=== PATIENT | male | born 1970 | race Caucasian/White ===

== ENCOUNTER 2022-05-15 05:58 | Outpatient (REF) | payer OTHER, SELFPAY ==
[2022-05-15 06:07] LABS: MANUAL DIFF FLAG NO
[2022-05-15 07:43] LABS: Basophils Percent Auto 0.4 % (0-2); Eosinophils Absolute Auto 0.3 X10*3/uL (0.0-0.4); Eosinophils Percent Auto 4.4 % (0-4); Hemoglobin 14.8 g/dl (14.0-18.0); Imm Gran Abs Auto 0.01 X10*3/uL (0.00-0.03); Imm Gran Pct Auto 0.1 % (0.0-0.4); Lymphocytes Absolute Auto 1.2 X10*3/uL (1.2-4.9); Mean Corpuscular HGB Conc 34.4 g/dl (31.0-36.0); Mean Corpuscular Hemoglobin 30.2 pg (27.0-33.0); Mean Corpuscular Volume 87.8 fL (80.0-98.0); Mean Platelet Volume 12.1 fL (9.4-12.4); Monocytes Absolute Auto 0.6 X10*3/uL (0.1-1.2); Monocytes Percent Auto 7.7 % (2-11); Neutrophils Absolute Auto 5.2 x10*3/uL (2.0-8.3); Neutrophils Percent Auto 71.4 % (45-73); Platelet Count 167 X10*3/uL (160-400); Red Cell Distribution Width 13.2 % (11.0-16.0); White Blood Count 7.2 X10*3/uL (4.8-10.8)
[2022-05-15 08:23] LABS: Alanine Aminotransferase 32 U/L (0-40); Albumin Level 4.4 g/dL (3.5-5.0); Alkaline Phosphatase 66 U/L (39-117); Anion Gap 13 (12-20); Aspartate Amino Transferase 28 U/L (5-37); Bilirubin Total 0.9 mg/dL (0.0-1.0); Blood Urea Nitrogen 24 mg/dL (9-16); Calcium 9.2 mg/dL (8.4-10.2); Carbon Dioxide 27 mmol/L (22-29); Chloride 106 mmol/L (96-108); Cholesterol 170 mg/dL; Estimated Glomerular Filt Rate > 60; Glucose Fasting 91 mg/dL (60-99); HDL Cholesterol 44 mg/dL; LDL Cholesterol Calculated 110 mg/dl; Potassium 4.3 mmol/L (3.3-5.1); Sodium 142 mmol/L (135-145); Triglycerides 80 mg/dL
[2022-05-15 08:48] LABS: Prostate Specific Antigen 0.56 ng/mL (<0.05-4.0)
[2022-05-17 15:22] LABS: Venous Lead 2.3 mcg/dL (<3.5)
== END 2022-05-15 05:59 | disposition home or self-care (01) ==
LOC: HO.LAB 05:58
PROVIDERS: PCP Internal Medicine; Visit Provider Internal Medicine
DX: Z00.00 Encounter for general adult medical examination without abnormal findings (principal); Z12.5 Encounter for screening for malignant neoplasm of prostate
CPT/HCPCS: 36415; 80053; 80061; 83655; 84153; 85025

== ENCOUNTER 2022-09-26 11:44 | Day surgery (SDC) | payer OTHER, SELFPAY ==
[2022-09-25 09:47] VITALS: BMI 27.4
--- NOTE | 2022-09-25 12:45 | HO.ANESPROP2 ---
Documented by User: Susana Oneal NP 09/25/22 12:45 HPI - Anesthesia Eval Consult details Narrative: 51yo M for Colonoscopy [facility] Past Medical History Medical History No pertinent past medical history Surgical History Surgical History (Updated 09/25/22 @ 09:43 by Erna Holley, RN) History of appendectomy History of hand surgery Social History Social History Patient Tobacco Use Status: Never used Tobacco Second Hand Smoke Exposure: No Use of substances other than those prescribed or required for medical reasons: No Are you DNR?: No Advance Directives: No Advance Directives Information Provided: Yes Advance Directives on File: No Meds Allergies Allergy/AdvReac Type Severity Reaction Status Date / Time No Known Allergies Allergy Verified 09/26/22 12:22 Home Medications Medication Instructions Recorded Confirmed Last Taken Type ibuprofen 100 mg tablet 400 mg PO DAILY PRN Pain 09/25/22 09/26/22 09/19/22 History multivitamin 1 tab PO DAILY 09/25/22 09/25/22 Unknown History Exam Exam Date and Time: September 25, 2022 1245 Height,Weight and Vital Signs: Height 5 ft 6 in Weight 77.111 kg Assessment and Plan Assessment Anesthesia Assessment: Chart Reviewed Documented by User: Boris Murillo MD 09/26/22 13:15 [facility] Past Medical History Medical History No pertinent past medical history Family History Family history of problems with anesthesia: No Surgical History Surgical History (Updated 09/25/22 @ 09:43 by Erna Holley RN) History of appendectomy History of hand surgery History of Problems with Anesthesia: No Social History Social History Patient Tobacco Use Status: Never used Tobacco Second Hand Smoke Exposure: No Use of substances other than those prescribed or required for medical reasons: No Are you DNR?: No Advance Directives: No Advance Directives Information Provided: Yes Advance Directives on File: No Meds Allergies Allergy/AdvReac Type Severity Reaction Status Date / Time No Known Allergies Allergy Verified 09/26/22 12:22 Home Medications Medication Instructions Recorded Confirmed Last Taken Type ibuprofen 100 mg tablet 400 mg PO DAILY PRN Pain 09/25/22 09/26/22 09/19/22 History multivitamin 1 tab PO DAILY 09/25/22 09/25/22 Unknown History Exam Airway Mallampati Class: II TM Dist: >3cm Neck ROM: Full Loose/Missing/Broken Teeth: No Heart: rrr Lungs: clear Assessment and Plan Final Anesthetic Review Family History of Problems with Anesthesia: No History of Problems with Anesthesia: No NPO: Yes ASA Class: I Final Preanesthetic Review: No Changes in Pt Med Stat, Meds/Allgs Chart Reviewed, Consent Obtained/Reviewed and Anes Risks/Benef Reviewed Patient Risk: Low Anesthetic Plan Anesthetic Plan: MAC: Disposition: Standard PACU
[2022-09-26 12:18] VITALS: BP 115/79; PULSE 78; RESP 16; TEMP 36.3; O2SAT 97
[2022-09-26] MEDS: Lactated Ringers 1,000 ML 100 ML IVCONT (12:29)
--- NOTE | 2022-09-26 13:32 | P.BOP_ITS ---
Brief Operative Note Date of Service: 09/26/22 Pre-op diagnosis: screening Post-op diagnosis: same Procedure: colonoscopy Surgeon: Rufino Szymanski Anesthesia: MAC Was an Auto Damage Estimator used for this Procedure?: No Estimated blood loss (mL): 0 Pathology: none sent Condition: stable Disposition: PACU
[2022-09-26 13:40] VITALS: BP 93/58; PULSE 71; RESP 18; TEMP 36.1; O2SAT 98
[2022-09-26 13:54] VITALS: BP 100/68; PULSE 65; RESP 16; TEMP 36.2; O2SAT 99
--- NOTE | 2022-09-27 05:10 | OP_ITS ---
SURGEON: Rufino Szymanski MD INDICATIONS: Colon cancer screening and family history of colon cancer. PREOPERATIVE DIAGNOSIS: POSTOPERATIVE DIAGNOSIS: PROCEDURE PERFORMED: Colonoscopy to the terminal ileum. ESTIMATED BLOOD LOSS: COMPLICATIONS: ANESTHESIA: ASSISTANTS: SPECIMENS: MEDICATIONS: Monitored anesthesia care. DESCRIPTION OF PROCEDURE: Date of service is 09/26/22. History and physical performed. The risks and benefits of the procedure were explained to the patient. Informed consent was obtained. The patient was placed in the left lateral decubitus position. A digital rectal exam was performed and was found to be normal. The Olympus pediatric video colonoscope was introduced into the rectum and advanced to the cecum without difficulty. The cecum was identified by transillumination, palpation, and identification of ileocecal valve. Examination was performed. The scope was removed. He tolerated the procedure well, returned to recovery area in stable condition. FINDINGS: The terminal ileum was normal. The visualized colonic mucosa was normal. The quality of the prep was good. No polyps were identified. Retroflexed examination showed small internal hemorrhoids. IMPRESSION: Normal colonoscopy. RECOMMENDATION: 1. Follow up as needed. 2. Repeat colonoscopy is recommended in 5 years because of family history. MD DESI Novoa/KALE / [id number] MTDNupur
== END 2022-09-26 14:15 | disposition home or self-care (01) ==
PROVIDERS: PCP Internal Medicine; Visit Provider Internal Medicine Gastroenterology
PROC: 0DJD8ZZ Inspection of Lower Intestinal Tract, Via Natural or Artificial Opening Endoscopic (ICD-10-PCS; CPT 45378; principal; 2022-09-26 13:00)
DX: Z12.11 Encounter for screening for malignant neoplasm of colon (principal); Z80.0 Family history of malignant neoplasm of digestive organs; K64.8 Other hemorrhoids; Z90.49 Acquired absence of other specified parts of digestive tract; Z87.891 Personal history of nicotine dependence; Z79.1 Long term (current) use of non-steroidal anti-inflammatories (NSAID)
CPT/HCPCS: 45378

== ENCOUNTER 2024-07-11 07:03 | Outpatient (REF) | payer OTHER, SELFPAY ==
[2024-07-11 07:19] LABS: MANUAL DIFF FLAG NO
[2024-07-11 07:59] LABS: Basophils Percent Auto 0.6 % (0-2); Eosinophils Absolute Auto 0.1 X10*3/uL (0.0-0.4); Eosinophils Percent Auto 2.4 % (0-4); Hematocrit 40.4 % (42.0-52.0); Hemoglobin 14.1 g/dl (14.0-18.0); Imm Gran Abs Auto 0.01 X10*3/uL (0.00-0.03); Imm Gran Pct Auto 0.2 % (0.0-0.4); Lymphocytes Absolute Auto 1.3 X10*3/uL (1.2-4.9); Lymphocytes Percent Auto 26.4 % (20-40); Mean Corpuscular HGB Conc 34.9 g/dl (31.0-36.0); Mean Corpuscular Hemoglobin 31.3 pg (27.0-33.0); Mean Corpuscular Volume 89.6 fL (80.0-98.0); Mean Platelet Volume 11.2 fL (9.4-12.4); Monocytes Absolute Auto 0.3 X10*3/uL (0.1-1.2); Monocytes Percent Auto 5.9 % (2-11); Neutrophils Absolute Auto 3.2 x10*3/uL (2.0-8.3); Neutrophils Percent Auto 64.5 % (45-73); Platelet Count 168 X10*3/uL (160-400); Red Blood Count 4.51 X10*6/uL (4.60-5.80); Red Cell Distribution Width 13.1 % (11.0-16.0); White Blood Count 4.9 X10*3/uL (4.8-10.8)
[2024-07-11 08:23] LABS: Alanine Aminotransferase 28 U/L (0-40); Albumin Level 4.1 g/dL (3.5-5.0); Alkaline Phosphatase 63 U/L (39-117); Anion Gap 11 (12-20); Aspartate Amino Transferase 26 U/L (5-37); Bilirubin Total 0.6 mg/dL (0.0-1.0); Blood Urea Nitrogen 18 mg/dL (9-16); Calcium 9.7 mg/dL (8.4-10.2); Carbon Dioxide 28 mmol/L (22-29); Chloride 107 mmol/L (96-108); Cholesterol 145 mg/dL (<200); Estimated Glomerular Filt Rate > 60; Glucose Fasting 100 mg/dL (60-99); HDL Cholesterol 49 mg/dL (>40); LDL Cholesterol Calculated 88 mg/dL (<100); Potassium 4.9 mmol/L (3.3-5.1); Sodium 141 mmol/L (135-145); Total Protein 6.6 g/dL (6.5-8.0); Triglycerides 40 mg/dL (<150)
[2024-07-11 08:45] LABS: Prostate Specific Antigen 1.14 ng/mL (<0.05-4.0)
== END 2024-07-11 07:04 | disposition home or self-care (01) ==
LOC: HO.LAB 07:03
PROVIDERS: PCP Internal Medicine; Visit Provider Internal Medicine
DX: Z00.00 Encounter for general adult medical examination without abnormal findings (principal); M54.50 Low back pain, unspecified; E78.00 Pure hypercholesterolemia, unspecified; Z12.5 Encounter for screening for malignant neoplasm of prostate
CPT/HCPCS: 36415; 80053; 80061; 84153; 85025

== ENCOUNTER 2024-08-04 07:48 | Outpatient (REF) | payer OTHER, SELFPAY | END 2024-08-04 07:49 | disposition home or self-care (01) | LOC: HO.SH 07:48 | PROVIDERS: Visit Provider Internal Medicine | DX: Z01.118 Encounter for examination of ears and hearing with other abnormal findings (principal); H90.6 Mixed conductive and sensorineural hearing loss, bilateral | CPT/HCPCS: 92557; 92567 ==

== ENCOUNTER 2025-05-31 14:51 | Outpatient (AMB) | payer OTHER, SELFPAY ==
--- NOTE | 2025-05-31 15:17 | A.OFFPC_ITS ---
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: No Accompanied by: Self / Same As Patient Allergies No Known Allergies Allergy (Verified 05/31/25 15:18) Tobacco use date assessed: 05/31/25 Dental Screening Dental Screen Date: 05/31/25 Did you have a dental visit in the last 12 months?: Yes Did you have a dental problem in the last 6 months where you did not have access to dental care?: No [facility] Medical History No pertinent past medical history Surgical History History of colonoscopy (~09/27/22) History of hand surgery History of appendectomy Family History (Updated 05/31/25 @ 15:44 by Brea Hernandez MA) Mother No problems noted. Father No problems noted. Social History Housing: House Patient Tobacco Use Status: Former Tobacco user e-Cigarette/Vaping Use: Former Use Second Hand Smoke Exposure: No service: No Current occupational status: employed Cognitive needs: No Hearing needs: No Vision needs: Yes (reading glasses) Questionnaire PHQ-9 Over the last 2 weeks, how often have you been bothered by any of the following problems? 1. Little interest or pleasure in doing things: not at all 2. Feeling down, depressed, or hopeless: not at all 3. Trouble falling or staying asleep, or sleeping too much: not at all 4. Feeling tired or having little energy: not at all 5. Poor appetite or overeating: not at all 6. Feeling bad about yourself - or that you are a failure or have let yourself or your family down: not at all 7. Trouble concentrating on things, such as reading the newspaper or watching television: not at all 8. Moving or speaking so slowly that other people could have noticed. Or the opposite - being so fidgety or restless that you have been moving around a lot more than usual: not at all 9. Thoughts that you would be better off or of hurting yourself in some way: not at all Total score: 0 Source: Developed by Drs. Josué Pederson, Maximiliano Glover and colleagues, with an educational wesley from [employer]. Thrive Questionnaire Date Thrive assessed: 05/31/25 I am a: Patient Within the past 12 months, did the food you bought not last and you didn't have the money to get more?: Never true Within the past 12 months, did you worry whether your food would run out before you got money to buy more?: Never true Do you have trouble paying for medicines?: No Do you have trouble getting transportation to medical appointments?: No Do you have trouble paying your heating and electricity bill?: No Do you have trouble taking care of your child, family member or friend?: No Do you have trouble with day-to-day activities such as bathing, preparing meals, shopping, managing finances, etc.?: No Are you currently unemployed and looking for a job?: No Are you interested in more education?: No THRIVE Score: 0 AUDIT C Alcohol Use Questionnaire (AUDIT-C) 1. How often do you have a drink containing alcohol?: Never 3. How often do you have six or more drinks on one occasion?: Never Total Score: 0 YENNI-7 AMB Questionnaire YENNI-7 Date YENNI - 7 assessed: 05/31/25 Feeling nervous, anxious, or on edge: 1 = Several days (hard time sleeping ) Not being able to stop or control worryin = Not at all Worrying too much about different things: 0 = Not at all Trouble relaxin = Not at all Being so restless that it is hard to sit still: 0 = Not at all Becoming easily annoyed or irritable: 0 = Not at all Feeling afraid as if something awful might happen: 0 = Not at all Total YENNI-7 score (0-4 normal; 5-9 mild; 10-14 moderate; 15-21 severe): 1 Source: Developed by Drs. Josué Pederson, Karrie Tello, Maximiliano Cowan and colleagues, with an educational wesley from [employer]. Physical exam (Primary Care) Vital Signs: Last Vital Signs Temp 97.6 F 05/31/25 15:39 Pulse 58 05/31/25 15:39 BP 120/76 05/31/25 15:39 Pulse Ox 99 05/31/25 15:39 Oxygen Delivery Method Room Air 05/31/25 15:39 BMI result Body Mass Index 25.8 Tobacco/Smoking Status: Tobacco use Status Tobacco use date assessed 05/31/25 05/31/25 15:19 Patient Tobacco Use Status Former Tobacco user 05/31/25 15:45 e-Cigarette/Vaping Use Former Use 05/31/25 15:45 PHQ-9: PHQ-9 Score PHQ-9: Total score 0 05/31/25 15:45 Thrive Assessment: Date of Thrive Assessment Date Thrive assessed 05/31/25 05/31/25 15:19 Coding Level of Care Code New Pt Prev Care 40-64y(34126) Diagnoses Annual physical exam Z00.00 Assessment & Plan Assessment & Plan (1) Annual physical exam: Code(s): Z00.00 - Encounter for general adult medical examination without abnormal findings Plan: History of Present Illness - The patient is a 54-year-old male Requesting an annual physical. - Hearing loss: The patient reports hearing loss primarily in the left ear, although both ears are affected. He underwent a hearing test, which confirmed the loss. He does not use any hearing aids. - Knee pain: The patient has been experiencing knee pain for the past three years, particularly in the left knee. The pain is noticeable in the morning and after prolonged sitting. He has been going to the gym, which may be contributing to the discomfort. - Social history: The patient denies smoking, tobacco, and marijuana use. He also reports no alcohol consumption. Social History - Substance use: The patient denies smoking, tobacco, and marijuana use. He also reports no alcohol consumption. - Exercise: The patient has been going to the gym regularly. Review of Systems - Auditory: Reports hearing loss, particularly in the left ear. - Musculoskeletal: Reports knee pain, particularly in the left knee, noticeable in the morning and after prolonged sitting. - Genitourinary: Denies any urinary issues. Physical Exam General: Cooperative and healthy appearing Nutritional Appearance: Well nourished Orientation/consciousness: Patient oriented x3 Limitations: No limitations Head: Normal to inspection General: Appearance normal, both eyes and all related structures Neck: Normal visual inspection Chest: Normal palpation of entire chest wall Respiratory: Normal respiratory effort Neurology: Patient oriented x3 Results - Hearing test: Confirmed hearing loss, particularly in the left ear. Plan 1. Hearing Loss - Plan to review hearing test results and consider audiology referral if necessary. 2. Knee Pain - Plan to monitor symptoms and consider physical therapy if pain persists. Discussion Notes During the visit, we discussed the patient's hearing loss and knee pain. I recommended reviewing the hearing test results and considering an audiology referral if necessary. For the knee pain, we discussed monitoring the symptoms and considering physical therapy if the pain persists. We also talked about the importance of fasting before the upcoming blood work. Patient Instructions - Follow up with audiology if hearing issues persist. - Monitor knee pain and consider physical therapy if it continues. - Fast after midnight before the scheduled blood work. Orders: Orders Basic Metabolic Panel 05/31/25 E78.5 - Hyperlipidemia, unspecified Thyroid Stimulating Hormone 05/31/25 E78.5 - Hyperlipidemia, unspecified Complete Blood Count no Diff 05/31/25 E78.5 - Hyperlipidemia, unspecified Lipid Panel 05/31/25 E78.5 - Hyperlipidemia, unspecified Liver Panel 05/31/25 E78.5 - Hyperlipidemia, unspecified UA and rflx microscopic 05/31/25 E78.5 - Hyperlipidemia, unspecified
[2025-05-31 15:39] VITALS: BP 120/76; PULSE 58; TEMP 36.4; O2SAT 99; BMI 25.8
--- OUTSIDE RECORDS SUMMARY | 2025-05-31 16:06 | XMS_ITS | Patient Health Record ---
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 the day before the procedure for 1 day 09/06/2022 Active Multivitamin Adult A ctive Advil Active Immunizations Vaccine Route Administration Date Status Comme nts Influenza Unknown 09/06/2022 Refused Social History Tobacco Use: Social History Observation Description Date Details (start date - stop date) Former Smoker NA - NA Tobacco Use/Smoking Question Answer Notes Patient is a former smoker How long has it been since you last smoked? > 10 years Alcohol Screen Question Answer Notes Did you have a drink containing alcohol in the p ast year? No Points 0 Interpretation Negative Problems Problem Type SNOMED Code ICD Code Onset Dates Problem Status W/U Status Risk Notes Problem 115800526 Colon cancer screening (Z12.11) Active confirmed Problem History of polyp of colon (situation) (821902103) Personal history of colonic polyps (Z86.010) Active confirmed Problem [id number] FH: colon cancer (Z80.0) Active confirmed Plan Of Treatment Future Test Test Name Order Date COLONOSCOPY 09/06/2022 Insurance Providers Payer Name Payer Address Payer Phone Subscriber Number Group Number Insured Name Patient Relationship to Insured Coverage Start Date Coverage End Date [employer] [place] [address] [address] [place] [address] [id number] KIP [id number] Self - patient is the insured Medical (General) History Medical History History ICD Code Denies [place],DM,CVA,Lung disease,renal dise ase Surgical History Surgery Date(Month/Year) appendectomy Right hand surgery
== END 2025-05-31 16:16 | disposition home or self-care (01) ==
LOC: HO.HMCHD 14:52
PROVIDERS: PCP Internal Medicine; Visit Provider Internal Medicine
DX: Z00.00 Encounter for general adult medical examination without abnormal findings (principal)

== ENCOUNTER 2025-06-05 07:11 | Outpatient (REF) | payer OTHER, SELFPAY ==
[2025-06-05 08:15] LABS: Hematocrit 39.2 % (42.0-52.0); Hemoglobin 13.7 g/dl (14.0-18.0); Mean Corpuscular HGB Conc 34.9 g/dl (31.0-36.0); Mean Corpuscular Hemoglobin 31.4 pg (27.0-33.0); Mean Corpuscular Volume 89.9 fL (80.0-98.0); NRBC Abs Auto 0.000 X10*3/uL (0.0-0.012); NRBC Pct Auto 0.0 /100WBC (0.0-0.2); Platelet Count 151 X10*3/uL (160-400); Red Blood Count 4.36 X10*6/uL (4.60-5.80); White Blood Count 3.8 X10*3/uL (4.8-10.8)
[2025-06-05 08:37] LABS: Appearance Urine Clear; Glucose Urine UA Negative (Negative); PH 6.5 (5.0-9.0); Specific Gravity - Urine >= 1.030 (1.005-1.025)
[2025-06-05 09:12] LABS: Alanine Aminotransferase 38 U/L (0-40); Albumin Level 4.4 g/dL (3.5-5.0); Alkaline Phosphatase 55 U/L (39-117); Anion Gap 9 (12-20); Aspartate Amino Transferase 28 U/L (5-37); Blood Urea Nitrogen 29 mg/dL (9-16); Calcium 9.1 mg/dL (8.4-10.2); Carbon Dioxide 27 mmol/L (22-29); Chloride 109 mmol/L (96-108); Cholesterol 166 mg/dL (<200); Estimated Glomerular Filt Rate > 60; HDL Cholesterol 54 mg/dL (>40); Potassium 4.0 mmol/L (3.3-5.1); Sodium 141 mmol/L (135-145); Total Protein 6.8 g/dL (6.5-8.0); Triglycerides 46 mg/dL (<150)
[2025-06-05 09:34] LABS: Thyroid Stimulating Hormone 1.00 uIU/mL (0.32-4.0)
== END 2025-06-05 07:12 | disposition home or self-care (01) ==
LOC: HO.LAB 07:11
PROVIDERS: PCP Internal Medicine; Visit Provider Internal Medicine
DX: E78.5 Hyperlipidemia, unspecified (principal)
CPT/HCPCS: 36415; 80048; 80061; 80076; 81003; 84443; 85027